=== PATIENT | male | born 1975 | race Caucasian/White ===

== ENCOUNTER 2016-11-17 11:51 | Outpatient (CLI) ==
[2016-01-08 16:22] VITALS: BMI 36.8
[2016-11-17 12:29] LABS: AMYLASE 38 U/L (25-115); LIPASE 21 U/L (8-78)
== END 2016-11-17 11:52 | disposition home or self-care (01) ==
LOC: LAB 11:51
PROVIDERS: ATTEND Emergency Medicine
DX: R19.7 Diarrhea, unspecified (principal)
CPT/HCPCS: 36415; 82150; 83690

== ENCOUNTER 2017-07-31 16:22 | Outpatient (CLI) ==
[2016-01-08 16:22] VITALS: BMI 36.8
--- NOTE | 2017-07-31 17:27 | DI ---
EXAM:Four view right knee COMPARISON: None HISTORY: Trauma and pain FINDINGS: There is no acute fracture or dislocation. Alignment is anatomic. Joint spaces are well preserved. There is some minimal tibial spine hypertrophy. Soft tissues are unremarkable. No unexpect ed radio-opaque foreign bodies. IMPRESSION: 1. Minimal degenerative change otherwise negative.
--- NOTE | 2017-07-31 17:30 | DI ---
EXAM:Four view left knee COMPARISON: None HISTORY: Left knee pain FINDINGS: There is no acute fracture or dislocation. Alignment is anatomic. Joint spaces are well preserved. There is some minimal tibial spine hypertrophy. Soft tissues are unremarkable. No unexpect ed radio-opaque foreign bodies. IMPRESSION: 1. No acute osseous abnormality. 2. Minimal degenerative change as noted.
== END 2017-07-31 16:23 | disposition home or self-care (01) ==
LOC: RAD 16:22
PROVIDERS: ATTEND Emergency Medicine
DX: M25.562 Pain in left knee (principal); M25.561 Pain in right knee; G89.29 Other chronic pain

== ENCOUNTER 2018-02-07 16:35 | Outpatient (CLI) ==
[2016-01-08 16:22] VITALS: BMI 36.8
--- NOTE | 2018-02-08 09:18 | DI ---
EXAM: Right foot three views HISTORY: Pain in right foot COMPARISON: None FINDINGS: No fracture or dislocation. Small plantar and posterior calcaneal spurs. No focal soft tis rosas abnormality. IMPERSSION: Small calcaneal spurs
== END 2018-02-07 16:36 | disposition home or self-care (01) ==
LOC: RAD 16:35
PROVIDERS: ATTEND Emergency Medicine
DX: M79.671 Pain in right foot (principal)

== ENCOUNTER 2018-02-26 16:11 | Outpatient (CLI) ==
[2016-01-08 16:22] VITALS: BMI 36.8
== END 2018-02-26 16:12 | disposition home or self-care (01) ==
LOC: CAR 16:11
PROVIDERS: ATTEND Psychiatry & Neurology Sleep Medicine
DX: G47.33 Obstructive sleep apnea (adult) (pediatric) (principal); I48.2 Chronic atrial fibrillation

== ENCOUNTER → 2018-05-03 | Outpatient (REF) ==
[2016-01-08 16:22] VITALS: BMI 36.8
== END ==
LOC: LAB 15:48
DX: Z02.89 Encounter for other administrative examinations (principal)
CPT/HCPCS: 36415; 80053; 80061; 82947; 83036; 83540; 84100; 84550; 85025; 86140; G0103

== ENCOUNTER 2018-07-03 20:02 | Emergency (ER) ==
[2018-07-03 20:07] VITALS: BP 153/97; TEMP 98.9; BMI 34.3
--- NOTE | 2018-07-03 20:35 | ED.PDOC ---
General ED Provider: Dr. JUAN FORD Chief Complaint: Bite Stated Complaint: Patient states that he was bit by a tick on the left lower abdomen since then he has been feeling pooly with feeling of malase. Feels hot all over. Time Seen by Physician: 20:37 Mode of Arrival: Walk-In Information Source: [facility] and Triage Documentation Reviewed and Agree: No Does patient meet sepsis criteria?: No System Inflammatory Response Syndrome: Not Applicable Sepsis Protocol: For patient's 13 years and over: Temp is 96.8 and below OR 101 and greater Pulse >90 BPM Resp >20/minute Acutely Altered Mental Status Are patient's symptoms suggestive of a new infection, such as: -Pneumonia -Skin, Soft Tissue -Endocarditis -UTI -Bone, Joint Infection -Implantable Device -Acute Abdominal Infection -Wound Infection -Meningitis -Blood Stream Catheter Infection -Unknown Skin Complaint Exam - Skin/Soft Tissue Complaint/Exam Onset/Duration: 1 days Symptoms Are: Still present Timing: Constant Initial Severity: Mild Current Severity: Mild Location: left lower abdomen/ groin area Character: Reports: Redness, Raised Aggravating: Reports: None Alleviating: Reports: None Associated Signs and Symptoms: Reports: Red streaks Related History: Reports: Insect bite/sting (Tick bite ) Related Surgical History: Reports: None Recent Exposure to Others w/Similar Symptoms: No Skin Findings: Present: Skin lesion, Pustules Joint Tenderness Present: No Differential Diagnoses: Tick-Borne Illness Review of Systems - Review Of Systems Constitutional: Reports: Chills, Malaise Eyes: Reports: No symptoms Ears, Nose, Mouth, Throat: Reports: No symptoms Respiratory: Reports: No symptoms Cardiac: Reports: No symptoms GI: Reports: No symptoms : Reports: No symptoms Musculoskeletal: Reports: No symptoms Skin: Reports: No symptoms Neurological: Reports: Anxiety Endocrine: Reports: No symptoms Hematologic/Lymphatic: Reports: No symptoms All Other Systems: Reviewed and Negative Past Medical History - Past Medical History Previously Healthy: Yes Endocrine: Reports: Dyslipidemia Cardiovascular: Reports: CAD, Hypertension, A-Fib Respiratory: Reports: None Hematological: Reports: None Gastrointestinal: Reports: None Genitourinary: Reports: None Neuro/Psych: Reports: None Musculoskeletal: Reports: None Cancer: Reports: None - Surgical History General Surgical History: Reports: Cholecystectomy, Other (Atrial fib ablation 5 years ago. ) - Family History Family History: Reports: Cancer (father lung) - Social History Smoking Status: Never smoker Hx Substance Use: No Alcohol Screening: Occasionally Physical Exam - Physical Exam Appearance: Well-appearing Eyes: ESPERANZA, EOMI, Conjunctiva clear ENT: Oropharynx normal Neck: Supple Respiratory: Airway patent, Breath sounds clear, Breath sounds equal, Respirations nonlabored Cardiovascular: RRR, Pulses normal, No rub, No murmur GI/: Soft, Nontender, No masses, Bowel sounds normal, No Organomegaly Musculoskeletal: Normal strength, ROM intact, No edema, No calf tenderness Skin: Warm, Dry Neurological: Sensation intact, Motor intact, Cranial nerves intact, Alert, Oriented Psychiatric: Anxious Critical Care Note - Critical Care Note Total Time (mins): 0 Course - Course Hematology/Chemistry: 07/03/18 20:40 07/03/18 20:40 Orders, Labs, Meds: Lab Review 07/03/18 07/03/18 20:40 20:40 WBC 11.73 H RBC 4.50 L Hgb 13.7 L Hct 37.7 L MCV 83.8 MCH 30.4 MCHC 36.3 H RDW Coeff of Bernarda 12.7 Plt Count 289 Immature Gran % (Auto) 0.3 Neut % (Auto) 55.1 Lymph % (Auto) 33.9 [place] % (Auto) 7.5 Eos % (Auto) 2.7 Baso % (Auto) 0.5 Immature Gran # (Auto) 0.0 Neut # (Auto) 6.5 Lymph # (Auto) 4.0 H [place] # (Auto) 0.9 Eos # (Auto) 0.3 Baso # (Auto) 0.1 Sodium 139.8 Potassium 3.54 Chloride 103.7 Carbon Dioxide 27.0 Anion Gap 12.64 BUN 14.0 Creatinine 0.91 Estimated GFR (MDRD) 92.00 BUN/Creatinine Ratio 15.38 Glucose 106.9 H Calcium 8.91 Total Bilirubin 0.60 AST 23.8 ALT 23.9 Alkaline Phosphatase 42.2 Total Protein 6.79 Albumin 4.46 Globulin 2.33 Albumin/Globulin Ratio 1.91 Orders Category Date Time Status CBC W/ AUTO DIFF Stat LAB 07/03/18 20:40 Completed COMPREHENSIVE METABOLIC PANEL Stat LAB 07/03/18 20:40 Completed EHRLICHIA DNA, PCR Stat LAB 07/03/18 20:40 Received LYME, WESTERN BLOT, SERUM Stat LAB 07/03/18 20:40 Received LOU MTN SPOTTED FEVER,IgG Stat LAB 07/03/18 20:40 Received LOU MTN SPOTTED FEVER,IgM Stat LAB 07/03/18 20:40 Received Doxycycline Hyclate MEDS 07/03/18 20:39 Discontinued 100 mg PO ONCE STA Medications Discontinued Medications Generic Name Dose Route Start Last Admin Trade Name Jose PRN Reason Stop Dose Admin Doxycycline Hyclate 100 mg 07/03/18 20:39 07/03/18 20:53 Doxycycline Hyclate PO 07/03/18 20:40 100 mg ONCE STA Administration Vital Signs: Temp Pulse Resp BP Pulse Ox 07/03/18 20:03 98.9 F 83 16 153/97 H 97 Departure - Departure Time of Disposition: 20:40 Disposition: HOME SELF-CARE Discharge Problem: Tick bite Qualifiers: Encounter type: initial encounter Qualified Code(s): W57.XXXA - Bitten or stung by nonvenomous insect and other nonvenomous arthropods, initial encounter Instructions: Tick Bite (ED) Condition: Good Pt referred to PMD for follow-up: Yes IPMP verified?: No Additional Instructions: Follow up with Your PCP in 3 days Take antibiotics as prescribed. Prescriptions: Doxycycline Hyclate 100 mg PO BID #14 capsule Allergies/Adverse Reactions: Allergies Antihistamines - Piperidine Adverse Reaction (Verified 07/03/18 20:06) azithromycin Adverse Reaction (Verified 07/03/18 20:06) ciprofloxacin [From Cipro] Adverse Reaction (Verified 07/03/18 20:06) ciprofloxacin HCl [From Cipro] Adverse Reaction (Verified 07/03/18 20:06) Iodine and Iodide Containing Produc Adverse Reaction (Verified 07/03/18 20:06) Penicillins Adverse Reaction (Verified 07/03/18 20:06) Sulfa (Sulfonamide Antibiotics) Adverse Reaction (Verified 07/03/18 20:06) Home Medications: Ambulatory Orders Aspirin [Hawk Chewable Aspirin] 81 mg PO DAILY 02/18/15 Doxycycline Hyclate 100 mg PO BID #14 capsule 07/03/18 Disposition Discussed With: Patient, Family
[2018-07-03] MEDS ORDERED: DOXYCYCLINE HYCLATE PO STA (20:39)
== END 2018-07-03 20:38 | disposition home or self-care (01) ==
LOC: ED 20:02
DX: S30.861A Insect bite (nonvenomous) of abdominal wall, initial encounter (principal); R53.81 Other malaise; W57.XXXA Bitten or stung by nonvenomous insect and other nonvenomous arthropods, initial encounter
CPT/HCPCS: 36415; 80053; 85025; 86617; 86757; 87798; 99283